=== PATIENT | male | born 1970 | race American Indian/Alaskan Native ===

== ENCOUNTER 2016-11-27 01:06 | Emergency (ER) | payer OTHER ==
--- NOTE | 2016-11-27 02:55 | XRay Report ---
FINAL REPORT EXAM: XR FOREARM RT HISTORY: injury, contusion COMPARISON: None available. FINDINGS: Two views the right forearm obtained. Bony structures are intact. Joint spaces are preserved. No acute fracture dislocation. IMPRESSION: No acute bony abnormality.
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
[2016-11-27] MEDS ORDERED: TYLENOL PO ONE (08:08)
[2016-11-27] MEDS ORDERED: BOOSTRIX IM ONE ×2 (08:09→08:25)
[2016-11-27] MEDS ORDERED: TYLENOL ONE (08:23)
[2016-11-27 08:57] VITALS: BP 150/80
[2016-11-27] MEDS ORDERED: XYLOCAINE 2%/EPI 1:100,000 INFILTRATI ONE (10:18)
[2016-11-27] MEDS ORDERED: NACL 0.9% IR ONE (10:18)
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
== END 2016-11-27 11:43 | disposition home or self-care (01) ==
LOC: EEVIPCON 01:06 → ED 01:06
DX: S01.01XA Laceration without foreign body of scalp, initial encounter (principal); G44.319 Acute post-traumatic headache, not intractable; M79.601 Pain in right arm; J45.909 Unspecified asthma, uncomplicated; F17.200 Nicotine dependence, unspecified, uncomplicated; F12.10 Cannabis abuse, uncomplicated; W22.8XXA Striking against or struck by other objects, initial encounter; Y93.89 Activity, other specified; Y99.8 Other external cause status; Y92.89 Other specified places as the place of occurrence of the external cause
CPT/HCPCS: 70450; 90471; 90715